=== PATIENT | female | born 1985 ===

== ENCOUNTER 2020-08-03 15:43 | Emergency (ER) | payer OTHER ==
[~2020-08-03] VITALS: Ht 154.4 cm; Wt 52.2 kg
[2020-08-03 16:12] VITALS: BP 126/86
--- NOTE | 2020-08-03 16:26 | ED GU-Female ---
General Chief Complaint: - Urinary Stated Complaint: PAINFUL WHEN URINATION Source: patient Exam Limitations: no limitations History of Present Illness Date Seen by Provider: Aug 03, 2020 Time Seen by Provider: 16:25 Initial Comments To ER with reports of pain only with urination. The pain is suprapubic. No pain in either flank. No nausea or vomiting or fevers. Symptoms started yesterday. She had one episode of blood in her urine. Timing/Duration: yesterday Severity/Quality: moderate Location: unknown Radiation: none Prior Genitourinary Problems: none Associated Symptoms: dysuria Allergies and Home Medications Patient Home Medication List Home Medication List Reviewed: Yes Review of Systems Review of Systems Constitutional: see HPI EENTM: see HPI Respiratory: no symptoms reported Cardiovascular: no symptoms reported Genitourinary: no symptoms reported Musculoskeletal: no symptoms reported Skin: no symptoms reported Psychiatric/Neurological: No Symptoms Reported Endocrine: No Symptoms Reported Past [id number]-[id number]-[id number] Hx Patient Social History Recent Foreign Travel: No Contact w/Someone Who Travel: No Physical Exam Vital Signs Vital Signs - First Documented 08/03/20 16:12 Temp 35.8 Pulse 76 Resp 18 B/P (MAP) 126/86 (99) Pulse Ox 98 O2 Delivery Room Air Capillary Refill : Height, Weight, BMI Height: '" Weight: lbs. oz. kg; BMI Method: General Appearance: WD/WN, no apparent distress HEENT: PERRL/EOMI, normal ENT inspection Neck: non-tender, full range of motion Respiratory: no respiratory distress, no accessory muscle use Gastrointestinal: normal bowel sounds, non tender Extremities: normal range of motion, non-tender Neurologic/Psychiatric: alert, normal mood/affect, oriented x 3 Skin: normal color, warm/dry Progress/Results/Core Measures Suspected Sepsis SIRS Temperature: Pulse: Respiratory Rate: Blood Pressure / Mean: Results/Orders Lab Results Laboratory Tests Test 08/03/20 16:12 Range/Units Urine Color YELLOW Urine Clarity CLEAR Urine pH 7.0 5-9 Urine Specific [place] <=1.005 1.016-1.022 Urine Protein NEGATIVE NEGATIVE Urine Glucose (UA) NEGATIVE NEGATIVE Urine Ketones NEGATIVE NEGATIVE Urine Nitrite NEGATIVE NEGATIVE Urine Bilirubin NEGATIVE NEGATIVE Urine Urobilinogen 0.2 < = 1.0 MG/DL Urine Leukocyte Esterase 1+ H NEGATIVE Urine RBC (Auto) 3+ H NEGATIVE Urine RBC NONE /HPF Urine WBC 10-25 H /HPF Urine Squamous Epithelial Cells 0-2 /HPF Urine Crystals NONE /LPF Urine Bacteria TRACE /HPF Urine Casts NONE /LPF Urine Mucus NEGATIVE /LPF Urine Culture Indicated YES My Orders Orders - MARIANA ADAME APRN Ua Culture If Indicated (08/03/20 16:22) Urine Culture (08/03/20 16:12) Vital Signs/I&O 08/03/20 16:12 Temp 35.8 Pulse 76 Resp 18 B/P (MAP) 126/86 (99) Pulse Ox 98 O2 Delivery Room Air Capillary Refill : Departure Impression Primary Impression: Urinary tract infection Disposition: HOME, SELF-CARE Condition: Stable Departure-Patient Inst. Decision time for Depature: 16:47 Referrals: NO,LOCAL PHYSICIAN (PCP/Family) Primary Care Physician Patient Instructions: Urinary Tract Infection, Adult (DC) Add. Discharge Instructions: 1. take antibiotics as directed. Symptoms should improve within the next 24-48 hours. Return to ER for any worsening. All discharge instructions reviewed with patient and/or family. Voiced understanding. Scripts Sulfamethoxazole/Trimethoprim (Bactrim Ds Tablet) 1 Each Tablet 1 EACH PO BID, #10 TAB Prov: MARIANA ADAME APRN 08/03/20 MARIANA ADAME APRN Aug 03, 2020 16:26
[2020-08-03 16:27] LABS: BILIRUBIN,URINE NEGATIVE (NEGATIVE); CLARITY,URINE CLEAR; COLOR,URINE YELLOW; GLUCOSE, URINE (UA) NEGATIVE (NEGATIVE); KETONES,URINE NEGATIVE (NEGATIVE); LEUKOCYTE ESTERASE ,URINE 1+ (NEGATIVE); NITRITE,URINE NEGATIVE (NEGATIVE); PROTEIN,URINE NEGATIVE (NEGATIVE)
[2020-08-03 16:43] LABS: BACTERIA,URINE TRACE /HPF; SQUAMOUS EPITHELIAL CELL,UR 0-2 /HPF
[2020-08-03] MEDS ORDERED: SULF1TAB35 PO (16:48)
[2020-08-03] MEDS ORDERED: LEVOFLOXACIN 500 MG TAB (LEVAQUIN) PO ONE (17:00)
== END 2020-08-03 17:22 ==
LOC: ER 15:45
DX: N39.0 Urinary tract infection, site not specified (principal)
CPT/HCPCS: 81000; 84703; 87088; 99283